=== PATIENT | female | born 2000 | race Two or more races ===

== ENCOUNTER 2023-06-17 12:26 | Inpatient (IN) | payer OTHER ==
[~2023-06-17] VITALS: Ht 157.5 cm; Wt 59.4 kg
[2023-06-17 12:44] LABS: URINE APPEARANCE Turbid; URINE BACTERIA 50.3 uL (0.0-1933); URINE BILIRRUBIN Small (NEGATIVE); URINE BLOOD Moderate; URINE COLOR Dark Yellow; URINE EPITHELIAL CELLS 18.8 uL (0.0-38.8); URINE GLUCOSE Negative (NEGATIVE); URINE LEUKOCYTE Moderate; URINE NITRATE Negative; URINE PROTEIN Trace (NEGATIVE); URINE RBC 1077.8 uL (0.0-20.8); URINE WBC 183.3 uL (0.0-23.2)
[2023-06-17 12:57] LABS: URINE CRYSTALS NEGATIVE /HPF; URINE YEAST NEGATIVE /hpf
[2023-06-17 13:00] LABS: HEMOGLOBIN 10.6 g/dL (12.0-15.00); MEAN CELL VOLUME 75.5 fL (80.00-100.00); MEAN CORPUSCULAR HEMOGLOBIN 24.3 pg (27.00-32.0); MEAN CORPUSCULAR HGB CONC 32.2 g/dl (32.0-36.0); PLATELET COUNT 146 K/uL (150-450); RED BLOOD COUNT 4.37 M/uL (4.00-6.00); RED CELL DISTRIBUTION WIDTH 15.7 % (11.5-14.5)
[2023-06-17 13:14] LABS: INR 0.95; PARTIAL THROMBOPLASTIN TIME 25.3 SECONDS (22.0-34.0)
[2023-06-17 13:17] LABS: ALBUMIN 3.1 gm/dL (3.4-5.0); BILIRUBIN TOTAL 1.54 mg/dL (0.3-1.2); CALCIUM 8.8 mg/dL (8.5-10.1); CREATININE SERUM 0.6 mg/dL (0.55-1.02); GFR 122.82; GLOBULINA 4.2 G/DL (2.4-3.5); POTASSIUM 4.01 mEq/L (3.5-5.1); TOTAL PROTEIN 7.3 gm/dL (6.4-8.2)
[2023-06-17 19:10] LABS: ABG PH 7.375 (7.35-7.45)
[2023-06-17 19:11] LABS: ABG pCO2 35.5 mmHg (35-45); BASE EXCESS -4.1 mmol/l; BICARBONATE 20.3 mmol/l (23-25); SaO2 75.4 %; Tco2 21.4 mmol/l; o2 21 %
== END 2023-06-19 13:24 | disposition home or self-care (01) | DRG 807 ==
LOC: LDR 12:26 → OB/GYN 12:26
PROVIDERS: Student in an Organized Health Care Education/Training Program; ADMIT Specialist; ATTEND Specialist
PROC: 10E0XZZ Delivery of Products of Conception, External Approach (ICD-10-PCS; principal; 2023-06-17)
PROC: 4A1HXCZ Monitoring of Products of Conception, Cardiac Rate, External Approach (ICD-10-PCS; 2023-06-17)
DX: O80 Encounter for full-term uncomplicated delivery (principal); Z37.0 Single live birth; Z3A.37 37 weeks gestation of pregnancy; Z20.822 Contact with and (suspected) exposure to COVID-19

== ENCOUNTER 2025-02-11 15:00 | Emergency (ER) | payer OTHER ==
[~2025-02-11] VITALS: Ht 157.5 cm; Wt 57.2 kg
[2025-02-11] MEDS ORDERED: PRENATAL + DHA1 EAC1 (16:27)
[2025-02-11 17:40] LABS: BASO % 0.4 % (0.1-1.2); EOS # 0.06 (0.04-0.54); EOS % 0.4 % (0.7-7.0); LYMPH # 2.35 (1.18-3.74); LYMPH % 17.6 % (19.3-53.1); MEAN PLATELET VOLUME 12.40 fl (9.4-12.4); MONO # 0.83 (0.24-0.82); MONO % 6.2 % (4.7-12.5); NEUT # 10.02 (1.56-6.13); NEUT % 75.1 % (34.0-71.1); RED CELL DISTRIBUTION WIDTH 17.2 % (11.6-14.4)
[2025-02-11 18:38] LABS: URINE APPEARANCE Clear; URINE BILIRRUBIN Negative (NEGATIVE); URINE BLOOD Moderate; URINE COLOR Yellow; URINE GLUCOSE Negative (NEGATIVE); URINE LEUKOCYTE Trace; URINE NITRATE Negative; URINE PROTEIN Negative (NEGATIVE); URINE UROBILINOGEN 0.2 E.U./dl
[2025-02-11 18:41] LABS: URINE BACTERIA 14.3 uL (0.0-1933); URINE EPITHELIAL CELLS 9.2 uL (0.0-38.8); URINE RBC 52.5 uL (0.0-20.8); URINE WBC 13.2 uL (0.0-23.2)
[2025-02-11 18:44] LABS: URINE CAST 0.00 uL (0.0-1.40); URINE KETONE 80 (NEGATIVE)
== END 2025-02-11 20:04 | disposition home or self-care (01) ==
LOC: ER 15:00
PROVIDERS: General Practice
DX: O02.1 Missed abortion (principal); Z3A.11 11 weeks gestation of pregnancy

== ENCOUNTER 2025-02-11 20:42 | Inpatient (IN) | payer OTHER ==
[~2025-02-11] VITALS: Ht 167.6 cm; Wt 63.5 kg
[~2025-02-11 20:42] MED LIST: PRENATAL + DHA1 EAC1
[2025-02-11 22:08] LABS: BASO % 0.2 % (0.1-1.2); EOS # 0.02 (0.04-0.54); EOS % 0.1 % (0.7-7.0); LYMPH # 1.51 (1.18-3.74); LYMPH % 7.9 % (19.3-53.1); MEAN PLATELET VOLUME 12.60 fl (9.4-12.4); MONO # 1.14 (0.24-0.82); MONO % 6.0 % (4.7-12.5); NEUT # 16.36 (1.56-6.13); NEUT % 85.4 % (34.0-71.1); RED CELL DISTRIBUTION WIDTH 17.2 % (11.6-14.4)
[2025-02-11 22:41] LABS: ALT/SGPT 13.0 U/L (12-78); AST/SGOT 13.0 U/L (15-37); BILIRUBIN TOTAL 0.89 mg/dL (0.3-1.2); BUN CREA RATIO 15.0 (7.0-25.0); CREATININE SERUM 0.61 mg/dL (0.55-1.02); GFR 119.5; GLOBULINA 4.2 G/DL (2.4-3.5); GLUCOSE FASTING 186.0 mg/dL (65-100); OSMOLALITY SERUM 281.0 MOSM/KG (275-295)
[2025-02-11] MEDS ORDERED: RINGERS SOLUTION,LACTATED 1,000 ML IV SCH (23:00)
[2025-02-12] MEDS ORDERED: PIPERACILLIN/TAZOBACTAM SODIUM 3.375 GM in 0.9 % SODIUM CHLORIDE 100 ML IV SCH
[2025-02-12 03:51] VITALS: BP 114/73
[2025-02-12 08:00] VITALS: BP 107/74
[2025-02-12 12:11] LABS: INR 1.08
[2025-02-12 16:32] VITALS: BP 109/70
[2025-02-13 01:48] VITALS: BP 97/64
[2025-02-13 06:32] LABS: BASO % 0.7 % (0.1-1.2); EOS # 0.16 (0.04-0.54); EOS % 1.5 % (0.7-7.0); LYMPH # 2.24 (1.18-3.74); LYMPH % 21.5 % (19.3-53.1); MONO # 0.96 (0.24-0.82); MONO % 9.2 % (4.7-12.5); NEUT # 6.92 (1.56-6.13); NEUT % 66.4 % (34.0-71.1); RED CELL DISTRIBUTION WIDTH 18.6 % (11.6-14.4)
[2025-02-13 07:26] LABS: INR 1.09
[2025-02-13] MEDS ORDERED: CHLORHEXIDINE GLUCONATE 120 ML BOTTLE TOP ONE (08:34)
[2025-02-13] MEDS ORDERED: POVIDONE-IODINE 118 ML BOTT TOP ONE (08:34)
[2025-02-13] MEDS ORDERED: OXYTOCIN 10 UNITS/ML VIAL ONE (09:23)
[2025-02-13] MEDS ORDERED: MORPHINE SULFATE 4 MG/ML CARTRIDGE IV PRN (10:00)
[2025-02-13 11:22] VITALS: O2SAT 100
[2025-02-13 11:57] LABS: BASO % 0.5 % (0.1-1.2); EOS # 0.13 (0.04-0.54); EOS % 0.9 % (0.7-7.0); LYMPH # 2.12 (1.18-3.74); LYMPH % 14.0 % (19.3-53.1); MEAN PLATELET VOLUME 12.60 fl (9.4-12.4); MONO # 1.17 (0.24-0.82); MONO % 7.7 % (4.7-12.5); NEUT # 11.54 (1.56-6.13); NEUT % 75.9 % (34.0-71.1); RED CELL DISTRIBUTION WIDTH 18.6 % (11.6-14.4)
[2025-02-13] MEDS ORDERED: KETOROLAC TROMETHAMINE 30 MG VIAL IV SCH (12:00)
[2025-02-13 16:10] VITALS: BP 93/63
[2025-02-13 20:10] VITALS: BP 97/65
[2025-02-13] MEDS ORDERED: ONDANSETRON HCL 2 MG/ML VIAL IV SCH (21:00)
[2025-02-14] VITALS: BP 115/73
[2025-02-14 08:10] VITALS: BP 105/69
[2025-02-14 09:04] LABS: BASO % 1.1 % (0.1-1.2); EOS # 0.30 (0.04-0.54); EOS % 3.8 % (0.7-7.0); LYMPH # 1.84 (1.18-3.74); LYMPH % 23.2 % (19.3-53.1); MEAN PLATELET VOLUME 12.60 fl (9.4-12.4); MONO # 1.03 (0.24-0.82); NEUT # 4.58 (1.56-6.13); NEUT % 57.9 % (34.0-71.1); RED CELL DISTRIBUTION WIDTH 18.1 % (11.6-14.4)
[2025-02-14 09:05] LABS: MONO % 13.0 % (4.7-12.5)
[2025-02-14] MEDS ORDERED: VITABEX IRON C1 EACH PO (11:43)
[2025-02-14] MEDS ORDERED: IBU800 MG PO (11:43)
[2025-02-14] MEDS ORDERED: DOXYCYCLINE HYCLATE 100MG EACH PO STA (11:46)
== END 2025-02-14 12:50 | disposition home or self-care (01) | DRG 770 ==
LOC: ER 20:51 → OB/GYN 22:57
PROVIDERS: General Practice; ADMIT Obstetrics & Gynecology; ATTEND Obstetrics & Gynecology
PROC: BU4CZZZ Ultrasonography of Uterus and Ovaries (ICD-10-PCS; 2025-02-12)
PROC: 30233N1 Transfusion of Nonautologous Red Blood Cells into Peripheral Vein, Percutaneous Approach (ICD-10-PCS; 2025-02-12)
PROC: 3E033VJ Introduction of Other Hormone into Peripheral Vein, Percutaneous Approach (ICD-10-PCS; 2025-02-13)
PROC: 10D17ZZ Extraction of Products of Conception, Retained, Via Natural or Artificial Opening (ICD-10-PCS; principal; 2025-02-13 09:45)
DX: O03.1 Delayed or excessive hemorrhage following incomplete spontaneous abortion (principal); O03.4 Incomplete spontaneous abortion without complication; Z67.10 Type A blood, Rh positive; D50.0 Iron deficiency anemia secondary to blood loss (chronic)